=== PATIENT | female | born 1970 | race Caucasian/White ===

== ENCOUNTER 2018-04-26 18:00 | Emergency (ER) | payer OTHER ==
[2018-04-26] MEDS ORDERED: IBUPROFEN 600 MG TAB PO ONE (18:14)
--- NOTE | 2018-04-26 18:25 | EDPHY ---
H & P Stated Complaint: fell walking dogs twisted l ankle Source: Patient Exam Limitations: No limitations - Personal History LMP (Females 10-55): 15-21 Days Ago Current Tetanus Diphtheria and Acellular Pertussis (TDAP): Yes - Medical/Surgical History Hx Asthma: No Hx Chronic Respiratory Disease: No Hx Diabetes: No Hx Cardiac Disease: No Hx Renal Disease: No Hx Cirrhosis: No Hx Alcoholism: No Hx HIV/AIDS: No Hx Splenectomy or Spleen Trauma: No Other PMH: denies - Social History Smoking Status: Never smoked Time Seen by Provider: 04/26/18 18:25 HPI/ROS: HPI: This is a 48-year-old female who presents with Chief Complaint: Left ankle injury while walking the dog Location: Left ankle Quality: Injury Duration: Prior to arrival Signs and Symptoms: No bleeding, no radiation, no numbness, no weakness, no tingling, no incontinence, + decreased range of motion,+ swelling, + pain, no fever Timing: Acute Severity: Moderate Context: Patient was walking her dog this evening when she stepped off of a curb and everted her left ankle. She reports that she heard a snap in her left lateral ankle with immediate, constant, moderate, nonradiating pain. She reports that pain increases with weight-bearing status. She has no prior history of ankle injuries. She is extremely concerned as she has to travel to [place] at the end of the week for her daughter's regional is as well as to [place] for competition in 2 weeks. She denies any weakness, paresthesias, skin color changes. Modifying Factors: None Comment: ROS: see HPI Constitutional: No fever, no chills, no weight loss Eyes: No blurred vision Respiratory: No shortness of breath, no cough Cardiovascular: No chest pain Gastrointestinal: No nausea, no vomiting no diarrhea Genitourinary: No dysuria Extremities: No myalgias Neurologic: No weakness, no numbness Skin: No rashes Hematologic: No bruising, no bleeding MEDICAL/SURGICAL/SOCIAL HISTORY: Medical history: Generally healthy. Does not take any regular medications. Surgical history: Denies Social history: with children. Nonsmoker. CONSTITUTIONAL: Extremely polite and cooperative middle-aged white female, awake and alert, no obvious distress HEENT: Atraumatic and normocephalic. EXTREMITIES: 2/2 pulses, strength 5/5, left Ankle: Moderate lateral swelling over the malleolus with mild ecchymosis. Plantar flexion to 50, dorsiflexion to 20. Foot inversion to 35 degree. Moderate tenderness/swelling Anterior talofibular ligament. Mild tenderness/swelling Calcaneofibular ligament, no tenderness/swelling posterior talofibular ligament, no tenderness/swelling posterior inferior tibiofibular ligament. Achilles tendon intact. DIP/PIP/MCP flexion/extension intact with good light touch sensation. no deformities, no clubbing, no cyanosis or edema. NEUROLOGICAL: no focal neuro deficits. GCS 15. Light touch sensation intact. SKIN: Warm and dry, no erythema. no rash. Good capillary refill. (Marli Estrada) Constitutional: Initial Vital Signs Temperature (C) 36.6 C 04/26/18 18:10 Heart Rate 94 04/26/18 18:10 Respiratory Rate 18 04/26/18 18:10 Blood Pressure 121/86 H 04/26/18 18:10 O2 Sat (%) 97 04/26/18 18:10 O2 Delivery Mode Room Air Allergies/Adverse Reactions: No Known Allergies Allergy (Unverified 04/26/18 18:09) Home Medications: Medication Instructions Recorded Levothyroxine 04/26/18 oxyCODONE/APAP 5/325 [Percocet 1 - 2 tab PO Q4H PRN #10 tab 04/26/18 5/325 (*)] Medical Decision Making Procedures: Procedure: Splint placement. A left walking boot and crutches were applied by the Emergency Room quality lab technician. After application of the splint I returned and re-examined the patient. The splint was adequately immobilizing the joint and distal to the splint the patient's circulation and sensation was intact. (Marli Estrada) ED Course/Re-evaluation: No signs of neurovascular compromise/tenting of skin/compartment syndrome/ extremities and joints examined above and below area of concern and are neurovascularly intact. Ice pack applied and given ibuprofen. X-ray my read shows lateral soft tissue swelling but no acute fracture, dislocation. Placed in walking boot, given crutches, orthopedic follow-up Given prescription of Percocet dispense 10. This patient was seen under the supervision of my secondary supervising physician. I evaluated care for this patient independently. Discussed this patient with Dr. Melissa. (Marli Estrada) The patient was evaluated and managed by the physician clinic assistant. I have reviewed this chart and I agree with the findings and plan of care as documented , as indicated by my signature. I am the secondary supervising physician. ( Natalie Melissa) Differential Diagnosis: Ankle injury differential diagnosis includes but is not limited to tibia fracture, fibula fracture, metatarsal fracture, LisFranc fracture, achilles tendon rupture, sprain. (Marli Estrada) - Data Points Medications Given: Discontinued Medications Ibuprofen (Motrin) 600 mg PO EDNOW ONE Stop: 04/26/18 18:15 Last Admin: 04/26/18 18:17 Dose: 600 mg Departure - Departure Disposition: Home, Routine, Self-Care Clinical Impression: Moderate left ankle sprain Condition: Good Instructions: Ankle Sprain (ED), Crutch Instructions (ED) Additional Instructions: Wear the walking boot while out of bed until pain free or seen by Orthopedics for follow-up. Use crutches to aid ambulation. Start with toe-touch weight-bearing status. Take Tylenol 650 mg every 4 hours and/or Ibuprofen 600 mg every 8 hours with food as needed for pain. Use Percocet every 6 hours as needed for severe/break through pain. Do not use Tylenol and Percocet concomitantly. Apply ice for 30 minutes at a time; 2-3 times per day for the next 1-2 days. Follow up with Orthopedics in 10-14 days at which time they will evaluate and recommend with you if conservative management versus surgery is indicated. The x-rays obtained in the emergency department today demonstrate no evidence of an obvious fracture. Sometimes fractures are not obvious on the initial set of x-rays performed in the ED. For this reason, you should have repeat x-rays performed in 7-10 days if you are having any pain exclude the possibility of an occult fracture. Referrals: Ramos Morillo MD [Medical Doctor] - As per Instructions Prescriptions: oxyCODONE/APAP 5/325 [Percocet 5/325 (*)] 1 - 2 tab PO Q4H PRN #10 tab PRN Reason: Pain, Severe
[2018-04-26 19:19] VITALS: BP 134/88
== END 2018-04-26 19:18 | disposition home or self-care (01) ==
DX: S93.412A Sprain of calcaneofibular ligament of left ankle, initial encounter (principal); X50.9XXA Other and unspecified overexertion or strenuous movements or postures, initial encounter; Y92.89 Other specified places as the place of occurrence of the external cause; Y99.8 Other external cause status; Y93.K1 Activity, walking an animal
CPT/HCPCS: L4386

== ENCOUNTER → 2019-02-11 | Outpatient (CLI) | payer OTHER | LOC: FIMAGING 13:33 | PROVIDERS: ATTEND Family Medicine | DX: Z12.31 Encounter for screening mammogram for malignant neoplasm of breast (principal) ==